=== PATIENT | female | born 1975 | race Caucasian/White ===

== ENCOUNTER 2022-07-25 18:22 | Emergency (ER) | payer OTHER ==
[~2022-07-25] VITALS: Ht 171.4 cm; Wt 86.0 kg
[2022-07-25 19:07] LABS: BASOPHILS % 0.5 % (0.0-2.0); EOSINOPHILS % 1.3 % (0.0-5.0); HEMATOCRIT. 42.5 % (36.0-48.0); HEMOGLOBIN. 14.7 g/dL (12.0-16.0); LYMPHOCYTES % 24.6 % (20.0-50.0); MEAN CORPUSCULAR HEMOGLOBIN 32.2 pg (28.0-32.0); MEAN CORPUSCULAR VOLUME 93.1 fL (81.0-99.0); MEAN PLATELET VOLUME 7.8 fl (7.4-10.4); MONOCYTES % 6.2 % (2.0-8.0); NEUTROPHILS % 67.4 % (40.0-76.0); PLATELET 386 x1000/uL (130-400); RED BLOOD CELL COUNT 4.56 mill/uL (4.2-5.4); RED CELL DISTRIBUTION WIDTH 12.4 % (11.6-14.6)
[2022-07-25 19:13] LABS: CHLORIDE 106 mEq/L (98-107)
[2022-07-26 02:24] LABS: CLARITY URINE CLEAR (CLEAR); COLOR URINE YELLOW (YELLOW); KETONES URINE 3+ (NEGATIVE); LEUKOCYTE ESTERASE URINE NEGATIVE (NEGATIVE); NITRITE URINE NEGATIVE (NEGATIVE); OCCULT BLOOD URINE NEGATIVE (NEGATIVE); PROTEIN URINE NEGATIVE (NEGATIVE); SPECIFIC GRAVITY URINE 1.024 (1.005-1.030); UROBILINOGEN URINE 0.2 E.U./dL (0.2-1.0)
[2022-07-26] MEDS ORDERED: MORPHINE SULFATE 4 MG/ML CPJ (NOT FOR IM USE) IV STA (02:36)
[2022-07-26] MEDS ORDERED: ONDANSETRON HCL 4MG/2ML INJ IV STA (02:36)
[2022-07-26 05:41] VITALS: BP 103/54
== END 2022-07-26 06:17 | disposition home or self-care (01) ==
LOC: ER 18:22
DX: N83.202 Unspecified ovarian cyst, left side (principal); Z90.710 Acquired absence of both cervix and uterus; Z86.73 Personal history of transient ischemic attack (TIA), and cerebral infarction without residual deficits
CPT/HCPCS: 36415; 74176; 76830; 76856; 80048; 81003; 83605; 83690; 85025; 96374; 96375; 99285; J2270; J2405